=== PATIENT | female | born 1970 | race Hispanic/Latino ===

== ENCOUNTER → 2017-06-06 | Outpatient (CLI) | payer BC ==
[~2017-06-06] MED LIST: LISINOPRIL-HCT1 EAC1 PO
--- NOTE | 2017-06-06 08:15 | Diagnostic Imaging Report ---
PROCEDURE:X-RAY LUMBAR SPINE, TWO VIEWS COMPARISON:None. INDICATIONS:HIP PAIN FINDINGS: There are 5 nonrib-bearing lumbar-type vertebral bodies. No acute, displaced fracture or subluxation. Disc spaces are well-maintained. Advanced bilateral facet arthropathy at L4-5 and moderate at L5-S1. Grade 1 degenerative anterolisthesis of L4 over L5. The inferior sacral body and coccyx is obscured by rectal gas and stool. The sacral foramina appear intact superiorly. Tubal ligation devices project over the pelvis. CONCLUSION: No acute osseous abnormality. Advanced L4-L5 and moderate L5-S1 degenerative facet arthropathy with grade 1 anterolisthesis of L4 over L5. Dictated by: Ramiro Scott M.D. on 06/06/2017 at 8:23 Electronically approved by: Ramiro Scott M.D. on 06/06/2017 at 8:23
--- NOTE | 2017-06-06 08:18 | Diagnostic Imaging Report ---
PROCEDURE:SI JOINTS 3 VIEWS OR LESS CLINICAL INDICATION: HIP PAIN COMPARISON:None. FINDINGS: No acute, displaced fracture or dislocation. Sacroiliac joints are well-maintained. Sacral foramina are intact superiorly. The low sacrum and coccyx are obscured by rectal gas and stool. Degenerative changes of the lumbar spine are seen to better advantage of comparison lumbar spine films. Bilateral tubal ligation devices project over the pelvis. CONCLUSION: No acute osseous abnormalities. Intact sacroiliac joints. Dictated by: Ramiro Scott M.D. on 06/06/2017 at 8:26 Electronically approved by: Ramiro Scott M.D. on 06/06/2017 at 8:26
== END ==
LOC: RAD 07:17
PROVIDERS: ATTEND Anesthesiology
DX: M47.897 Other spondylosis, lumbosacral region (principal)
CPT/HCPCS: 72100; 72200

== ENCOUNTER → 2017-10-21 | Outpatient (CLI) | payer BC ==
[~2017-10-21] MED LIST changes: +LORAZEPAM INJ 2 MG/ML VIAL ONE
--- NOTE | 2017-10-22 08:52 | Diagnostic Imaging Report ---
Exam: Lumbar spine MRI without IV contrast History: Back pain, lumbar spondylosis Comparison studies: Lumbar spine x-ray 06/06/2017 Technique: Sagittal and axial T2 , sagittal T1 and IR, axial spin density oblique coronal T2. Intravenous contrast: None Findings: Number of lumbar vertebral bodies: 5. Alignment: Normal lumbar lordosis. Mild lumbar curvature convex to the left is better visualized on the previous lumbar spine x-ray. There is minimal Grade 1 retrolisthesis of L3 on L4 and approximately 2 mm Grade 1 degenerative anterolisthesis of L4 and L5. Soft tissues: No T2 hyperintense inflammatory changes. Incidental partially imaged 7 mm T2 hyperintense lesion in the superior pole the left kidney, likely cyst. There is a partially imaged left adrenal nodule which measures at least 2.3 cm. Similar nodule described on the previous abdomen pelvis CT of 03/24/2015. Paraspinal muscles: No signal abnormalities. Well-preserved. No atrophic changes Lower thoracic cord: Normal in signal and morphology. The tip of the conus is at the superior T12 level. Cauda equina: No masses. No arachnoiditis. Vertebrae: No compression fractures, infection or neoplasm. Degenerative changes: L1-L2: No abnormalities L2-L3: Mild loss of T2/STIR disc signal. Mild disc bulge does not result in canal or foraminal stenosis. L3-L4: Loss of T2/STIR disc signal. Minimal retrolisthesis of L3 on L4 with associated uncovered disc/disc bulge without significant canal or foraminal stenosis. L4-L5: Loss of T2/STIR disc signal. Grade 1 anterolisthesis of L4 and L5 with associated uncovered disc/disc bulge, thickened ligamentum flavum and severe bilateral facet arthrosis with severe canal stenosis and moderate right and mild left foraminal stenosis. L5-S1: Mild loss of disc height and loss of T2/STIR disc signal. Disc bulge with broad-based central disc protrusion which extends to the right subarticular zone and moderate right and mild left facet arthrosis with moderate canal stenosis, moderate bilateral foraminal stenosis, bilateral subarticular stenosis and potential compression of the right subarticular S1 nerve root. IMPRESSION: 1. Mildly degenerated disks from L2 to S1, greatest at L5-S1. 2. Degenerative Grade 1 L4 anterolisthesis with associated severe bilateral facet arthrosis, severe canal stenosis and moderate right and mild left foraminal stenosis at L4-L5. 3. Moderate canal stenosis with moderate right facet arthrosis at L5-S1 where there is a disc bulge with broad-based disc protrusion which may also compress the right S1 nerve root. 4. Left adrenal nodule as described on previous abdomen pelvis CT of 03/24/2015. Recommend abdomen CT or MRI adrenal mass protocol to further evaluate if not previously performed. Signed by: Dr. Ramiro Ugalde M.D. on 10/22/2017 8:49 AM
== END ==
LOC: MRI 08:11
PROVIDERS: ATTEND Anesthesiology
DX: M47.897 Other spondylosis, lumbosacral region (principal)
CPT/HCPCS: 72148; J2060

== ENCOUNTER → 2017-10-22 | Outpatient (CLI) | payer BC ==
[~2017-10-22] MED LIST changes: -LORAZEPAM INJ 2 MG/ML VIAL ONE
[2017-10-22 13:50] LABS: ALBUMIN 4.2 g/dL (3.5-5.0); BILIRUBIN,DIRECT 0.1 mg/dL (0.0-0.5)
== END ==
LOC: LAB 13:20
PROVIDERS: ATTEND Anesthesiology
DX: M47.897 Other spondylosis, lumbosacral region (principal); Z79.891 Long term (current) use of opiate analgesic
CPT/HCPCS: 36415; 80076; 84520

== ENCOUNTER 2017-12-21 11:18 | Emergency (ER) | payer BC ==
[~2017-12-21] VITALS: Ht 157.5 cm; Wt 113.4 kg
[2017-12-21] MEDS ORDERED: SODIUM CHLORIDE 0.9% 1000ML 1,000 ML IV SCH (11:45)
[2017-12-21] MEDS ORDERED: MECLIZINE HCL 12.5 MG TAB PO ONE (11:45)
[2017-12-21 11:50] LABS: BASOPHILS % 0.3 % (0.0-1.0); EOSINOPHILS # (AUTO) 0.2 (0.0-0.4); EOSINOPHILS % 1.1 % (0.0-6.0); HEMOGLOBIN 13.1 g/dL (12.0-16.0); LYMPHOCYTES # (AUTO) 3.9 (1.0-3.2); LYMPHOCYTES % 28.7 % (18.0-39.1); MEAN CORPUSCULAR HEMOGLOBIN 29.1 pg (28-32); MEAN CORPUSCULAR HGB CONC 32.8 g/dL (31-35); MEAN CORPUSCULAR VOLUME 88.9 fL (81-99); MONOCYTES # (AUTO) 0.8 (0.2-0.8); MONOCYTES % 5.5 % (4.4-11.3); NEUTROPHILS # (AUTO) 8.8 (2.1-6.9); NEUTROPHILS % 63.9 % (38.7-80.0); PLATELET COUNT 348 x10e3/uL (140-360)
[2017-12-21 12:07] LABS: ALANINE AMINOTRANSFERASE 23 IU/L (0-55); ALKALINE PHOSPHATASE 49 IU/L (40-150); ANION GAP 14.7 mmol/L (8-16); BLOOD UREA NITROGEN 14 mg/dL (7-26); BUN/CREATININE RATIO 20 (6-25); CARBON DIOXIDE 28 mmol/L (22-29); CHLORIDE 98 mmol/L (98-107); CREATINE KINASE 71 IU/L (29-168); CREATININE, SERUM 0.71 mg/dL (0.57-1.11); EST GLOMERULAR FILTRATION RATE > 60 ML/MIN (60-); GLUCOSE 127 mg/dL (74-118); POTASSIUM 3.7 mmol/L (3.5-5.1); SODIUM 137 mmol/L (136-145)
--- NOTE | 2017-12-21 12:25 | Diagnostic Imaging Report ---
EXAMINATION: Head CT HISTORY: Headache, hypertension COMPARISON: Head CT on 03/24/2015. TECHNIQUE: Multidetector axial images were obtained without contrast from the foramen magnum to the vertex . The images were reconstructed using brain and bone algorithms. Thin section brain images were reformatted into coronal and sagittal planes. Intravenous contrast: None. Image quality: Motion/streaking artifact limits the evaluation of the skull base and posterior cranial fossa. FINDINGS: Parenchyma: 1. No abnormal densities. 2. No mass or hemorrhage. No CT evidence of acute territorial vascular insult. Extra-axial spaces:No abnormal density. No extra-axial fluid collections Brain volume: Normal for age. Ventricles: No hydrocephalus or displacement. Arteries: No density suggestive of thrombus. Dural sinuses: No abnormal density. Extra-axial spaces: No abnormal density. Foramen magnum: No mass, Chiari malformation, or basilar invagination. Sella: No obvious mass. Paranasal/mastoid sinuses: Imaged portions unremarkable. Skull/Scalp: No lytic or blastic lesions. No fractures. IMPRESSION: No intracranial abnormalities, particularly no hemorrhage. Unchanged from head CT on 03/24/2015. Signed by: Dr. Marilee Martin M.D. on 12/21/2017 12:21 PM
== END 2017-12-21 14:53 | disposition home or self-care (01) ==
LOC: ER 11:18
DX: R42 Dizziness and giddiness (principal); I10 Essential (primary) hypertension; E78.00 Pure hypercholesterolemia, unspecified
CPT/HCPCS: 36415; 70450; 80053; 82550; 82553; 84484; 85025; 93005; 99284; J7030

== ENCOUNTER 2018-08-08 20:57 | Emergency (ER) | payer BC ==
[~2018-08-08] VITALS: Ht 157.5 cm; Wt 112.0 kg
[2018-08-08] MEDS ORDERED: CIPRO500 MG PO (21:37)
[2018-08-08] MEDS ORDERED: PYRIDIUM100 MG PO (21:39)
== END 2018-08-08 21:51 | disposition home or self-care (01) ==
LOC: FSED 20:57
DX: R30.0 Dysuria (principal); N30.91 Cystitis, unspecified with hematuria; I10 Essential (primary) hypertension
CPT/HCPCS: 81003; 81025; 99283

== ENCOUNTER → 2018-11-11 | Outpatient (CLI) | payer BC ==
[~2018-11-11] MED LIST changes: +CIPRO500 MG PO; +PYRIDIUM100 MG PO
== END ==
LOC: MAMMO 12:08
PROVIDERS: ATTEND Student in an Organized Health Care Education/Training Program
DX: Z12.31 Encounter for screening mammogram for malignant neoplasm of breast (principal)
CPT/HCPCS: 77067

== ENCOUNTER → 2019-11-25 | Outpatient (CLI) | payer BC ==
[~2019-11-25] MED LIST changes: +LORAZEPAM INJ 2 MG/ML VIAL ONE
--- NOTE | 2019-11-25 17:02 | Diagnostic Imaging Report ---
MRI SPINE LUMBAR WO HISTORY: Low back pain, bilateral leg pain COMPARISON: Lumbar spine MRI 10/21/2017 TECHNIQUE: Sagittal T1, sagittal T2, sagittal STIR, axial T2, coronal T2, and axial proton density weighted images of the lumbar spine were obtained without contrast. Motion and noise artifacts obscure some details. DISCUSSION: Number of non-rib bearing lumbar vertebral bodies: 5. Alignment: Normal lordosis. No scoliosis. Vertebrae: No fractures, infection or neoplasm. Conus medullaris: Normal, ends at T12-L1. Cauda equina: No masses or arachnoiditis. Posterior paraspinal muscles: Well preserved. No signal abnormalities. Soft tissues: Possible cholelithiasis is partially imaged. Partially imaged small T2 hyperintense lesion in the posterior left upper kidney is likely a cyst. Approximately 2.3 cm left adrenal nodule is stable. Mild lower lumbar disc degeneration, most prominent at L5-S1, has not significantly changed. T12-L1: Patent canal and foramina. L1-L2: Patent canal and foramina. L2-L3: Disc bulge without significant canal or foraminal stenosis. L3-L4: Disc bulge without significant canal or foraminal stenosis. L4-L5: Unchanged minimal grade 1 anterolisthesis of L4 on L5 due to prominent bilateral facet arthrosis. Severe canal stenosis due to uncovered disc bulge and ligamentum flavum thickening. Both lateral recesses are effaced. Mild to moderate right and mild left foraminal stenoses due to uncovered disc bulge and facet arthrosis. L5-S1: Unchanged minimal grade 1 anterolisthesis of L5 on S1 is due to facet arthrosis. Moderate canal stenosis due to uncovered disc bulge, superimposed right central disc extrusion (with minimal superior migration), and ligamentum flavum thickening. Both lateral recesses are effaced, right greater than left. The disc extrusion abuts both descending S1 nerve roots, right greater than left. Moderate bilateral foraminal stenoses due to uncovered disc bulge and facet arthrosis. IMPRESSION: 1. Overall unchanged mild lower lumbar disc degeneration, most prominent at L5-S1. 2. Unchanged grade 1 anterolisthesis of L4 on L5 and minimal grade 1 anterolisthesis of L5 on S1 due to facet arthrosis. 3. Severe L4-L5 and moderate L5-S1 degenerative canal stenoses. 4. Multilevel degenerative foraminal stenoses - mild to moderate right and mild left at L4-L5; moderate bilaterally at L5-S1. Signed by: Dr. Mo Lea M.D. on 11/25/2019 4:59 PM
== END ==
LOC: MRI 08:58
PROVIDERS: ATTEND Anesthesiology Pain Medicine
DX: G89.4 Chronic pain syndrome (principal); M54.5 Low back pain
CPT/HCPCS: 72148; 81025; J2060

== ENCOUNTER → 2020-02-22 | Outpatient (CLI) | payer BC ==
[~2020-02-22] MED LIST changes: -LORAZEPAM INJ 2 MG/ML VIAL ONE
== END ==
LOC: MAMMO 11:59
PROVIDERS: ATTEND Student in an Organized Health Care Education/Training Program
DX: Z12.31 Encounter for screening mammogram for malignant neoplasm of breast (principal)
CPT/HCPCS: 77067

== ENCOUNTER 2020-12-20 16:53 | Emergency (ER) | payer BC, OTHER ==
[~2020-12-20] VITALS: Ht 154.9 cm; Wt 108.9 kg
[2020-12-20] MEDS ORDERED: CIPRO500 MG PO (19:53)
[2020-12-20] MEDS ORDERED: DICYCLOMINE HCL20 MG PO (19:55)
== END 2020-12-20 20:07 | disposition home or self-care (01) ==
LOC: FSED 17:01
DX: R30.0 Dysuria (principal); R11.0 Nausea; R10.30 Lower abdominal pain, unspecified; I10 Essential (primary) hypertension; E78.5 Hyperlipidemia, unspecified; E78.00 Pure hypercholesterolemia, unspecified
CPT/HCPCS: 81003; 99283

== ENCOUNTER → 2021-03-01 | Outpatient (CLI) | payer OTHER ==
[~2021-03-01] MED LIST changes: +DICYCLOMINE HCL20 MG PO
== END ==
LOC: MAMMO 13:36
PROVIDERS: ATTEND Student in an Organized Health Care Education/Training Program
DX: Z12.31 Encounter for screening mammogram for malignant neoplasm of breast (principal)
CPT/HCPCS: 77067

== ENCOUNTER → 2022-03-05 | Outpatient (CLI) | payer BC ==
[~2022-03-05] MED LIST changes: +HYDROCHLOROTHIA25 MG PO; +IRBESARTAN150 MG PO; +LEVOTHYROXINE50 MCG PO
== END ==
LOC: MAMMO 13:09
PROVIDERS: ATTEND Student in an Organized Health Care Education/Training Program
DX: Z12.31 Encounter for screening mammogram for malignant neoplasm of breast (principal)
CPT/HCPCS: 77067